=== PATIENT | female | born 1995 ===

== ENCOUNTER 2025-10-04 06:00 | Day surgery (SDC) | payer OTHER ==
[2025-09-29 09:20] LABS: URINE APPEARANCE Clear; URINE BILIRRUBIN Negative (NEGATIVE); URINE BLOOD Negative; URINE COLOR Yellow; URINE GLUCOSE Negative (NEGATIVE); URINE KETONE Negative (NEGATIVE); URINE LEUKOCYTE Negative; URINE NITRATE Negative; URINE PROTEIN Negative (NEGATIVE); URINE UROBILINOGEN 0.2 E.U./dl
[2025-09-29 09:21] LABS: URINE BACTERIA 2786.4 uL (0.0-1933); URINE EPITHELIAL CELLS 34.8 uL (0.0-38.8); URINE RBC 57.2 uL (0.0-20.8); URINE WBC 35.5 uL (0.0-23.2)
[2025-09-29 09:23] VITALS: BP 100/60
[2025-09-29 09:24] LABS: URINE CAST 0.14 uL (0.0-1.40)
[2025-09-29 09:25] LABS: BASO % 0.7 % (0.1-1.2); EOS # 0.18 (0.04-0.54); EOS % 3.9 % (0.7-7.0); LYMPH # 2.35 (1.18-3.74); LYMPH % 51.0 % (19.3-53.1); MEAN PLATELET VOLUME 9.50 fl (9.4-12.4); MONO # 0.27 (0.24-0.82); MONO % 5.9 % (4.7-12.5); NEUT # 1.77 (1.56-6.13); NEUT % 38.3 % (34.0-71.1); RED CELL DISTRIBUTION WIDTH 13.1 % (11.6-14.4)
[2025-09-29 09:46] LABS: INR 1.01
[2025-09-29 11:32] LABS: ALT/SGPT 26.0 U/L (12-78); AST/SGOT 20.0 U/L (15-37); BILIRUBIN TOTAL 0.26 mg/dL (0.3-1.2); BUN CREA RATIO 25.0 (7.0-25.0); CREATININE SERUM 0.68 mg/dL (0.55-1.02); GFR 100.27; GLOBULINA 3.0 G/DL (2.4-3.5); GLUCOSE FASTING 90.0 mg/dL (65-100); OSMOLALITY SERUM 284.0 MOSM/KG (275-295); T4 FREE 0.64 NG/ML (0.76-1.46)
[2025-09-29 11:33] LABS: TSH 7.88 uIU/mL (0.358-3.74)
[~2025-10-04] VITALS: Ht 162.6 cm; Wt 59.0 kg
[~2025-10-04 06:00] MED LIST: METHIMAZOLE10 MG PO
[2025-10-04] MEDS ORDERED: DEXAMETHASONE SODIUM PHOSPHATE 4 MG/ML VIAL ONE (07:25)
== END 2025-10-04 13:00 | disposition home or self-care (01) ==
LOC: CIR.AMB 06:00
PROVIDERS: ATTEND Surgery
DX: E05.10 Thyrotoxicosis with toxic single thyroid nodule without thyrotoxic crisis or storm (principal)